=== PATIENT | male | born 1965 | race Caucasian/White ===

== ENCOUNTER 2020-07-01 15:20 | Outpatient (CLI) | payer BC, SELFPAY ==
[2020-07-01 18:06] LABS: Albumin Level 3.9 g/dL (3.5-5.1); Anion Gap 6 mmol/L (8-16); Blood Urea Nitrogen 39 mg/dL (9-20); Calcium 10.2 mg/dL (8.4-10.2); Carbon Dioxide 36 mmol/L (22-30); Chloride 99 mmol/L (98-107); Estimated Glomerular Filt Rate 39; Glucose 91 mg/dL (75-110); Potassium 4.6 mmol/L (3.4-5.0); Sodium 141 mmol/L (137-145)
[2020-07-01 18:18] LABS: Parathyroid Intact 203.9 pg/mL (7.5-53.5)
[2020-07-01 18:24] LABS: Vitamin D 25 Hydroxy 21.3 ng/mL
== END 2020-07-01 15:21 | disposition home or self-care (01) ==
LOC: ANHWCLAB 15:24
PROVIDERS: PCP Internal Medicine; Visit Provider Internal Medicine Endocrinology, Diabetes & Metabolism
DX: N20.0 Calculus of kidney (principal)
CPT/HCPCS: 36415; 80048; 82040; 82306; 83970

== ENCOUNTER 2020-07-05 16:01 | Outpatient (CLI) | payer BC, SELFPAY ==
[2020-07-05 17:00] LABS: Creatinine Urine 39.8 mg/dL
[2020-07-05 17:08] LABS: Total Volume 24 Hour Urine 2700 ml
[2020-07-08 14:00] LABS: Total Volume 2750 mL; Urine Calcium 2.4 mg/dL
== END 2020-07-05 16:02 | disposition home or self-care (01) ==
LOC: ANHLAB 16:07
PROVIDERS: PCP Internal Medicine
DX: N20.0 Calculus of kidney (principal); E83.52 Hypercalcemia
CPT/HCPCS: 81050; 82340; 82570

== ENCOUNTER → 2020-07-14 15:29 | Outpatient (CLI) | payer BC, SELFPAY ==
--- NOTE | ~2020-07-14 | CT_ITS ---
EXAMINATION: CT diagnostic chest w con DATE: 07/14/2020 16:02 INDICATION: Left pleural-based mass seen on outside hospital chest radiograph TECHNIQUE: Transaxial computed tomographic images of the chest were obtained after the administration of 75 cc of Omnipaque 350 intravenous contrast. The dose-length product (DLP) was 717.56 mGy-cm. Ite rative reconstruction was used. COMPARISON: None FINDINGS: There is an expansile, lytic soft tissue mass involving the left sixth rib. The soft tissue component measures up to 6 cm in thickness and extends into the chest wall as well as into the left pleural space. There is a 1.1 cm lytic lesion at the lateral aspect of the left fifth rib. There is n o pleural effusion or pneumothorax. There are nodules in the lower lobes. The largest measures 9 mm i n the right lower lobe on image 98. The heart size is normal. There is calcified coronary artery athe rosclerosis. There are dilated collateral vessels in the left axilla. There appears to be an approxim ately 11.2 x 7.2 cm partially imaged left retroperitoneal mass. There is a 3 cm low-attenuation mass of the left adrenal gland containing calcification. There is moderate thoracic spondylosis. IMPRESSION: 1. Expansile, lytic soft tissue mass of the left sixth rib concerning for metastatic disease. 2. Partially imaged left retroperitoneal mass. Further evaluation with dedicated CT of the abdomen an d pelvis with contrast is recommended. 3. Indeterminate nodules of the lower lobes measuring up to 9 mm. Metastatic disease is a considerati on. 4. Low attenuation right adrenal mass, likely adenoma. Reviewed, dictated and finalized at [facility]. IMPRESSION: 1. Expansile, lytic soft tissue mass of the left sixth rib concerning for metas tatic disease. 2. Partially imaged left retroperitoneal mass. Further evaluation with dedicate d CT of the abdomen and pelvis with contrast is recommended. 3. Indeterminate nodules of the lower lobes measuring up to 9 mm. Metastatic di sease is a consideration. 4. Low attenuation right adrenal mass, likely adenoma.
[2020-07-14 15:50] LABS: Estimated Glomerular Filt Rate 39
== END ==
PROVIDERS: PCP Internal Medicine; Visit Provider Internal Medicine
DX: R91.8 Other nonspecific abnormal finding of lung field (principal); I25.10 Atherosclerotic heart disease of native coronary artery without angina pectoris; E27.9 Disorder of adrenal gland, unspecified; M47.814 Spondylosis without myelopathy or radiculopathy, thoracic region
CPT/HCPCS: 71260; Q9967

== ENCOUNTER → 2020-07-22 14:45 | Outpatient (CLI) | payer BC, SELFPAY ==
--- NOTE | ~2020-07-22 | CT_ITS ---
EXAMINATION: CT abdomen pelvis wo/w con DATE: 07/22/2020 15:31 INDICATION: Retroperitoneal mass TECHNIQUE: Computed tomography (CT) of the abdomen and pelvis was performed without and subsequently with 100 cc Omnipaque 350 intravenous contrast. Automated exposure control and iterative reconstructi on technique were employed. Exam dose: 1889.80 mGy-cm total exam DLP. COMPARISON: 07/14/2020 CDT diagnostic chest FINDINGS: Calcified right lower lobe pulmonary granulomas. There is an indeterminate 8 mm nodule in t he posteromedial right lung base. 4.5 mm probable left lower lobe calcified pulmonary granuloma. Prom inent discoid atelectasis or scarring in the left lower lobe. Prominent pleural-based tissue mass with invasion of the lateral left lower chest wall including expa nsile osteolytic lesion of sixth left lateral rib, most likely a metastatic lesion. Cardiomegaly. No pericardial or pleural effusion. The liver, gallbladder, pancreas, bile ducts, pancr eatic duct and spleen are unremarkable. Approximately 3 cm right adrenal mass containing calcification and some fat attenuation, likely a rig ht adrenal myelolipoma. There is a large heterogeneous soft tissue mass in the left adrenal area measuring up to 7.1 cm with 11.7 cm anteroposterior dimension, likely a metastatic left adrenal lesion, less likely a left renal hypernephroma or sarcoma. There is a similar composition 2 a right upper pole renal mass measuring up to 7.2 cm dimension. There is an indeterminate approximately 3.5 cm nonenhancing lesion of the medial lower pole of the ri ght kidney. There is approximately 6.3 cm heterogeneous apparent mass at the anterior aspect of the upper pole of the left kidney. There is a lobular outline particularly at the upper pole left kidney; additional l eft renal masses may be present. Low-attenuation approximately 5 cm exophytic lesion along the latera l aspect of lower pole left kidney, possibly an exophytic cyst. Prominent dimension of the left and right renal veins. MRI of the kidneys is recommended for possible bilateral renal hypernephromas, possibly metastatic to the left adrenal gland. There is normal caliber and mild atherosclerotic calcification of the abdominal aorta. No periaortic or aortocaval lymphadenopathy or pelvic lymphadenopathy is noted. There is moderate prostate enlargement and mild calcification. The urinary bladder is unremarkable. No bowel obstruction or intraperitoneal free air is detected. Normal appendix. Small bilateral fat containing inguinal hernias. No suspicious osteolytic or osteoblastic lesions are noted other than the previously reported lateral left sixth rib destruction. 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 Reviewed, dictated and finalized at [facility]. 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
[2020-07-22 15:17] LABS: Estimated Glomerular Filt Rate 39
== END ==
PROVIDERS: PCP Internal Medicine; Visit Provider Internal Medicine
DX: R19.09 Other intra-abdominal and pelvic swelling, mass and lump (principal)
CPT/HCPCS: 74178; Q9967